=== PATIENT | male | born 1950 | race Caucasian/White ===

== ENCOUNTER 2021-01-29 10:29 | Emergency (ER) | payer MEDICARE, SELFPAY ==
[2021-01-29 10:38] VITALS: BP 151/86; PULSE 77; RESP 16; TEMP 36.4; O2SAT 98
--- NOTE | 2021-01-29 10:39 | ED.URI ---
HPI - URI/Sore Throat General Chief Complaint: Upper Respiratory Infection Stated Complaint: COUHG Time Seen by Provider: 01/29/21 10:39 Source: patient, RN notes reviewed and old records reviewed Mode of arrival: ambulatory Limitations: no limitations History of Present Illness HPI Narrative: 70-year-old male who presents to [facility] with complaints of persistent cough for the past 11 days, on Medrol dose pack at present time from his PCP. Patient states that at the start of his symptoms he had headache generalized with with sinus drainage. He reports that he has been tired and felt weak with some episodes of diarrhea. Patient reports also that he has some changes in his taste and smell. Patient denies any known exposure to COVID, has not had immunizations. MD elicited complaint: cough and other (diarrhea,) Onset (ago): day(s) () Consistency: constant Related Data Home Medications Medication Instructions Recorded Confirmed finasteride mg 01/29/21 lisinopril 01/29/21 prednisone 01/29/21 Allergies Allergy/AdvReac Type Severity Reaction Status Date / Time No Known Allergies Allergy Mild Unverified 11/22/12 07:06 Review of Systems Review of Systems: CONSTITUTIONAL: Denies fever, chills, or sweats. EYES: Denies visual changes, redness, or discharge. ENT: reports some rhinorrhea, congestion, no sore throat, or otalgia. CARDIOVASCULAR: Denies chest pain, palpitations, or edema. RESPIRATORY: Positive cough denies dyspnea. GASTROINTESTINAL: Denies abdominal pain, nausea, vomiting, episodes of diarrhea GENITOURINARY: Denies dysuria or hematuria. SKIN: Denies rash or itching. MUSCULOSKELETAL: Denies back pain, joint pain, or myalgia. NEUROLOGIC: Intermittent headache,no numbness, reports weakness and fatigue PSYCHIATRIC: Denies anxiety or depression. All systems reviewed & are unremarkable except as noted in HPI and below PMFSH Past Medical History Medical History (Updated 01/30/21 @ 00:01 by Meghna Aquino) Hypertension Surgical History Surgical History (Updated 01/29/21 @ 11:09 by Miguelina Huff NP) No history of previous surgery Family History Family History (Updated 01/29/21 @ 10:44 by Miguelina Huff NP) Father Hypertension Cerebrovascular accident Heart disease Mother Hypertension Cerebrovascular accident History of stomach cancer Social History Social History (Updated 01/29/21 @ 11:09 by Miguelina Huff NP) Smoking status: Never smoker Alcohol intake: current Alcohol use details: Social Substance use: never Living arrangements: with family Gender identity (if verbalized by the patient): Male Comments At time of signature, agree with nursing past medical, surgical, social and family history. There is no relevant family history pertinent to the presenting complaint Exam Narrative: GENERAL: Well-appearing, well-nourished, and in no acute distress. HEAD: Normocephalic, atraumatic. EYES: PERRLA and EOMI. ENT: Nares red no rhinorrhea or epistaxis. Mucous membranes moist. TM's normal with good light reflex, throat mild redness no exudates or lesion no tonsil enlargement NECK: Supple.no lymphadenopathy CHEST: Clear to auscultation. No respiratory distress.SAO2 98% on room air, persistent cough HEART: Regular rate and rhythm. No murmur heard. Normal peripheral pulses. ABDOMEN: Soft, nontender, nondistended, normal active bowel sounds. EXTREMITIES: Normal range of motion. No edema. SKIN: Warm, dry, no rash. NEURO: No focal deficits. Alert and oriented x3. Course Vital Signs Vital signs: Vital Signs Temperature 36.4 C 01/29/21 10:38 Pulse Rate 77 01/29/21 10:38 Respiratory Rate 16 01/29/21 10:38 Blood Pressure 151/86 H 01/29/21 10:38 Pulse Oximetry 98 01/29/21 10:38 Temperature 36.4 C 01/29/21 10:38 Pulse Rate 77 01/29/21 10:38 Respiratory Rate 16 01/29/21 10:38 Blood Pressure 151/86 H 01/29/21 10:38 Pulse Oximetry 98
== END 2021-01-29 11:45 | disposition home or self-care (01) ==
PROVIDERS: Emergency Provider Registered Nurse; PCP Family Medicine Adolescent Medicine
DX: U07.1 COVID-19 (principal); I10 Essential (primary) hypertension
CPT/HCPCS: 87081; 87426; 87804; 87880; 99203; C9803; G0463

== ENCOUNTER → 2021-07-10 00:17 | Outpatient (CLI) | payer MEDICARE, SELFPAY ==
[2021-07-11 15:56] LABS: SARS-CoV-2 RNA PCR Negative
== END ==
PROVIDERS: PCP Family Medicine Adolescent Medicine; Visit Provider Specialist
DX: Z01.812 Encounter for preprocedural laboratory examination (principal); Z20.822 Contact with and (suspected) exposure to COVID-19
CPT/HCPCS: C9803; U0003; U0005

== ENCOUNTER 2021-07-14 01:09 | Day surgery (SDC) | payer MEDICARE, SELFPAY ==
[2021-07-13 13:18] VITALS: BMI 32.5
[2021-07-14] VITALS (28 sets, daily range): BP systolic 138–172; BP diastolic 72–98; PULSE 64–89; RESP 12–20; TEMP 36.3–36.8; O2SAT 96–100
[2021-07-14 08:56] LABS: Basophils Percent Auto 0.3 % (0.2-1.2); Eosinophils Absolute Auto 0.1 K/mm3 (0-0.3); Eosinophils Percent Auto 0.7 % (0-4.4); Hematocrit 49.6 % (42.0-52.0); Hemoglobin 17.1 g/dL (14.0-18.0); Immature Granulocyte Absolute 0.11 K/mm3 (0.00-0.031); Immature Granulocyte Percent A 0.8 % (0-0.5); Lymphocytes Absolute Auto 1.19 K/mm3 (0.9-3.2); Lymphocytes Percent Auto 8.8 % (18.3-44.2); Mean Corpuscular HGB Conc 34.5 g/dl (32-36); Mean Corpuscular Hemoglobin 31.7 pg (26-34); Mean Platelet Volume 9.3 fl (7.4-10.4); Monocytes Absolute Auto 0.8 K/mm3 (0.1-0.6); Neutrophils Absolute Auto 11.2 K/mm3 (1.3-6.7); Neutrophils Percent Auto 83.4 % (45.5-73.1); Platelet Count Result 293 k/mm3 (150-375); Red Blood Count 5.39 M/mm3 (4.6-6.20); Red Cell Distribution Width 12.5 % (11.5-14.5); White Blood Count 13.5 K/mm3 (4.5-10.0)
[2021-07-14 09:12] LABS: Anion Gap 9 mmol/L (8-16); Blood Urea Nitrogen 15 mg/dL (9-20); Calcium 9.4 mg/dL (8.4-10.2); Carbon Dioxide 30 mmol/L (22-30); Chloride 102 mmol/L (98-107); Estimated CRCL calculation 72 ml/min; Estimated Glomerular Filt Rate > 60; Glucose 146 mg/dL (65-110); Potassium 4.2 mmol/L (3.4-5.0); Sodium 141 mmol/L (137-145)
--- NOTE | 2021-07-14 10:08 | WPDMODSED ---
Moderate Sedation Note-Pt Data Patient Data Diagnosis: Exertional chest pain abnormal stress test Present Complaint: exertional chest discomfort Procedure to be performed/Plan: left heart catheterization Allergies Allergy/AdvReac Type Severity Reaction Status Date / Time No Known Allergies Allergy Mild Unverified 07/14/21 09:05 Home Medications Medication Instructions Recorded Confirmed Type finasteride 5 mg PO DAILY 01/29/21 07/13/21 History Adults Multivitamin 2 tablet PO DAILY 07/13/21 07/13/21 History Lopressor 25 mg PO BID 07/13/21 07/13/21 History Zyrtec 10 mg PO DAILY 07/13/21 07/13/21 History aspirin 325 mg PO DAILY 07/13/21 07/13/21 History atorvastatin [Lipitor] 20 mg PO DAILY 07/13/21 07/13/21 History lisinopril 10 mg tablet 10 mg PO DAILY #90 tablet 07/13/21 Rx Current Medications: Active Medications Sodium Chloride (Normal Saline Iv) 500 mls @ 100 mls/hr IV CONT .Q5H MENDY Sedation/Anesthesia: No previous sedation/anesthesia problems (including family history). [facility] Past Medical History Medical History (Updated 01/30/21 @ 00:01 by Meghna Aquino) Hypertension Surgical History Surgical History (Updated 01/29/21 @ 11:09 by Miguelina Huff NP) No history of previous surgery Family History Family History (Updated 01/29/21 @ 10:44 by Miguelina Huff NP) Father Hypertension Cerebrovascular accident Heart disease Mother Hypertension Cerebrovascular accident History of stomach cancer Social History Social History (Updated 01/29/21 @ 11:09 by Miguelina Huff NP) Smoking status: Never smoker Alcohol intake: current Alcohol use details: Social Substance use: never Gender identity (if verbalized by the patient): Male Mod Sed Physical Exam Physical Exam Pre Procedural Exam: Normal: Neck, Throat, Airway, Lungs, Heart Size, Heart Rate, Heart Rhythm, Neuro Exam, Abdomen and Extremities and Variation: Appearance ( overweight gentleman no distress) Hours since solid foods: 12 Hours since liquid intake: 12 Mallampati Classification: class II Internal Medicine - PN: Obj Da Vital Signs Vital Signs: Vital Signs - 24 hr 07/14/21 09:08 Temperature 36.4 C L Pulse Rate 81 Respiratory Rate 16 Blood Pressure 157/91 H Pulse Oximetry 97 Meds/Results Medications: Active Medications Generic Name Dose Route Start Last Admin Trade Name Scott PRN Reason Stop Dose Admin Sodium Chloride 500 mls @ 100 mls/hr 07/14/21 08:30 Normal Saline Iv IV CONT .Q5H MENDY Labs CBC & Chem 7: 07/14/21 08:45 07/14/21 08:45 Labs: Laboratory Results - last 24 hr 07/14/21 07/14/21 08:45 08:45 WBC 13.5 H RBC 5.39 Hgb 17.1 Hct 49.6 MCV 92.0 MCH 31.7 MCHC 34.5 RDW 12.5 Plt Count 293 MPV 9.3 Immature Gran % (Auto) 0.8 H Neut % (Auto) 83.4 H Lymph % (Auto) 8.8 L [place] % (Auto) 6.0 Eos % (Auto) 0.7 Baso % (Auto) 0.3 Lymph # (Auto) 1.19 [place] # (Auto) 0.8 H Eos # (Auto) 0.1 Baso # (Auto) 0.0 Abs Immat Gran (auto) 0.11 H Absolute Neuts (auto) 11.2 H Absolute Nucleated RBC 0.0 Nucleated RBC % 0.0 Sodium 141 Potassium 4.2 Chloride 102 Carbon Dioxide 30 Anion Gap 9 BUN 15 Creatinine 1.00 Estim Creat Clear Calc 72 Estimated GFR > 60 Glucose 146 H Calcium 9.4 ASA Classification/Sedation ASA Classification/Sedation ASA Class: II Emergent: No Risks: Risks, benefits and alternatives explained and patient/family accepted plan for sedation. Patient re-evaluated immediately prior to sedation.
--- NOTE | 2021-07-14 11:10 | ECG_ITS ---
Measurements Intervals [place] Rate: 67 P: 49 CT: 165 QRS: -7 QRSD: 83 T: -33 QT: 362 QTc: 384 Interpretive Statements SINUS RHYTHM ATRIAL PREMATURE COMPLEX CONSIDER INFERIOR INFARCT, AGE INDETERMINATE BORDERLINE T WAVE ABNORMALITY- ANTEROLAT/HIGH LAT LEADS BASELINE ARTIFACT- I, II, V4-V6 ABNORMAL ECG Electronically Signed On 07-14-2021 13:07:07 GATE TENDER by Priyank Gomes D.O.
--- NOTE | 2021-07-14 11:15 | WPDCARDPROC ---
Cardiac Cath Procedure Note Date of procedure:: 07/14/21 Performing physician:: Palmer Zhang MD Indication:: exertional chest pain abnormal stress test Brief clinical history:: this is a 70-year-old man with hypertension and dyslipidemia who has been experiencing exertional chest pain for several months. Exercise stress test as an outpatient was significantly abnormal prompting the recommendation for an angiogram today. Procedure Procedure performed:: Coronary angiogram left ventriculogram PCI(INDIRA) to proximal LAD Access site:: right femoral artery Estimated blood loss:: 20 cc Procedure note:: patient was brought to the garden labourer in the postabsorptive state the right femoral triangle was prepared draped in the usual fashion. Anesthesia was given with 1% lidocaine infiltrated locally. Using the modified Seldinger technique a 5 [place] vascular sheath was placed in the femoral artery. After this left heart catheterization was carried out. I used a 5 [place] angled pigtail catheter to perform a left ventriculogram in the ROSS projection. After this the pigtail catheter was removed and then a 5 [place] FL4 catheter was used to engage and inject the left coronary artery and then a 5 [place] JR4 catheter was used to engage and inject the right coronary artery. The cineangiograms were then reviewed and PCI of the LAD was recommended and carried out as detailed below. Prior to PCI the 5 [place] sheath was changed out over the guidewire for a 6 [place] sheath. He received 180 mg of oral Brilinta and was anticoagulated with Angiomax bolus and infusion for procedural anticoagulation. Following the procedure the sheath was sutured into position the guiding catheter was removed the patient had no apparent procedural complications no evidence of a groin hematoma upon leaving the garden labourer. Findings:: Hemodynamics: Central aortic pressure was 158 over 78 left ventricle 158/0 end-diastolic 14. No gradient on pullback across the aortic valve. Left ventricle: The LV is normal in size all segments contract appropriately the global ejection fraction is 50-55% there were no regional wall motion abnormalities. The left main coronary artery is large caliber widely patent the left anterior descending is a moderate caliber artery extending down to the apex. There is a high-grade 95% discrete stenosis in the proximal LAD just before the origin of the major diagonal branch. Distally the LAD is fairly small in caliber but free of significant disease. Circumflex is a medium caliber artery giving rise to the marginal branches. The circumflex system is smooth and angiographically normal in appearance right coronary artery is large caliber and dominant to the posterior circulation the right coronary artery is smooth and angiographically normal in appearance. Intervention: The left coronary artery was engaged using a 6 [place] CLS 3.0 guiding catheter. The LAD was wired using the 0.014 BMW coronary guidewire. The lesion was pre-dilated using a 3.0 x 20 mm emerge balloon. The target lesion was then stented using a 3.5 x 22 mm Orsiro drug-eluting stent with an excellent anatomic result no residual stenosis disruption dissection or distal embolization. Conclusion:: 1. right coronary dominant circulation with single-vessel coronary artery disease high-grade 95 % stenosis of the proximal left anterior descending. 2. Preserved left ventricular systolic function 3. successful revascularization treating the LAD lesion using the Orsiro sirolimus eluting stent with a nice anatomical result as detailed above. Palmer Zhang MD [facility]
--- NOTE | 2021-07-14 14:15 | SUR.PHASEII ---
sheath pulled by this RN. no hematoma noted. hemostasis obtained. statseal applied to access site. dressing applied. d/c/i
--- NOTE | 2021-07-14 16:42 | SUR.PHASEII ---
reported given to imu by jia jurado. patient transferred with belongings. patient is going to update his on his new room to 210. patient a/ox2. site wnl.. no hematoma noted, dressing d/c i
--- NOTE | 2021-07-14 16:50 | PC.NURSE ---
This patient, Jeff Ortiz, was received from [facility] on 07/14/21 at 1650. Report received from BI Kebede. Patient/family oriented to unit policies and routines
[2021-07-14] MEDS: TICAGRELOR 90 MG TABLET PO (22:05)
[2021-07-14] MEDS: METOPROLOL TARTRATE 25 MG TABLET PO (22:05)
[2021-07-15] VITALS (9 sets, daily range): BP systolic 133–150; BP diastolic 67–78; PULSE 56–70; RESP 16–20; TEMP 36.2–36.5; O2SAT 95–98
--- NOTE | 2021-07-15 05:11 | ECG_ITS ---
Measurements Intervals [place] Rate: 66 P: 39 NM: 165 QRS: -16 QRSD: 85 T: 34 QT: 360 QTc: 378 Interpretive Statements SINUS RHYTHM FREQUENT ATRIAL PREMATURE COMPLEXES INFERIOR INFARCT, AGE INDETERMINATE NONSPECIFIC T-WAVE ABNORMALITY- ANTEROLAT/HIGH LAT LEADS ABNORMAL ECG Electronically Signed On 07-15-2021 10:02:28 HAT MEASURER by Priyank Gomes D.O.
[2021-07-15] MEDS: ATORVASTATIN 40 MG TABLET PO (08:43)
[2021-07-15] MEDS: TICAGRELOR 90 MG TABLET PO (08:44)
[2021-07-15] MEDS: ASPIRIN 81 MG CHEWABLE TABLET PO (08:44)
[2021-07-15] MEDS: METOPROLOL TARTRATE 25 MG TABLET PO (08:44)
[2021-07-15] MEDS: lisinopriL 10 MG TABLET PO (08:44)
--- NOTE | 2021-07-15 09:10 | PM.PNCARD ---
Progress Note: A&P Assessment and Plan (1) Atherosclerotic heart disease of [place] coronary artery without angina pectoris: Code(s): I25.10 - Atherosclerotic heart disease of [place] coronary artery without angina pectoris Status: Acute Assessment and Plan: Recent abnormal stress test prompting coronary angiogram which was performed yesterday. Subjective Date/time seen: 07/15/21 09:10 Review of Systems Review of Systems: All systems reviewed & are unremarkable except as noted in HPI and below Objective Data Vital Signs Vital Signs: Vital Signs - 24 hr 07/14/21 11:30 07/14/21 11:45 07/14/21 12:00 Temperature 36.8 C Pulse Rate 66 65 65 Pulse Rate [Bilateral Pedal (Dorsalis Pedis)] Respiratory Rate 16 12 12 Blood Pressure 152/79 H 145/85 H 152/88 H Pulse Oximetry 98 97 96 07/14/21 12:15 07/14/21 12:30 07/14/21 12:45 Temperature Pulse Rate 64 72 65 Pulse Rate [Bilateral Pedal (Dorsalis Pedis)] Respiratory Rate 12 12 12 Blood Pressure 150/84 H 147/84 H 149/91 H Pulse Oximetry 96 96 96 07/14/21 13:00 07/14/21 13:15 07/14/21 13:20 Temperature Pulse Rate 77 66 Pulse Rate [Bilateral Pedal (Dorsalis Pedis)] Respiratory Rate 12 12 12 Blood Pressure 145/87 H 152/85 H 158/84 H Pulse Oximetry 100 97 98 07/14/21 13:25 07/14/21 13:30 07/14/21 13:35 Temperature Pulse Rate Pulse Rate [Bilateral Pedal (Dorsalis Pedis)] 69 69 68 Respiratory Rate 12 12 12 Blood Pressure 143/95 H 165/88 H 162/94 H Pulse Oximetry 98 97 07/14/21 13:40 07/14/21 13:45 07/14/21 13:50 Temperature Pulse Rate Pulse Rate [Bilateral Pedal (Dorsalis Pedis)] 67 73 75 Respiratory Rate 14 12 Blood Pressure 172/98 H 148/84 H Pulse Oximetry 97 97 07/14/21 14:05 07/14/21 14:20 07/14/21 14:35 Temperature Pulse Rate 71 Pulse Rate [Bilateral Pedal (Dorsalis Pedis)] 73 71 76 Respiratory Rate 12 20 12 Blood Pressure 152/72 H 138/85 154/79 H Pulse Oximetry 97 96 96 07/14/21 14:50 07/14/21 15:24 07/14/21 15:50 Temperature Pulse Rate Pulse Rate [Bilateral Pedal (Dorsalis Pedis)] 74 83 83 Respiratory Rate 12 12 12 Blood Pressure 162/77 H 144/83 H 146/83 H Pulse Oximetry 96 100 100 07/14/21 16:55 07/14/21 18:00 07/14/21 19:02 Temperature 36.3 C L 36.6 C Pulse Rate 75 74 78 Pulse Rate [Bilateral Pedal (Dorsalis Pedis)] Respiratory Rate 16 20 Blood Pressure 157/82 H 147/80 H Pulse Oximetry 98 96 07/14/21 20:00 07/14/21 22:00 07/14/21 22:05 Temperature Pulse Rate 81 66 89 Pulse Rate [Bilateral Pedal (Dorsalis Pedis)] Respiratory Rate 20 Blood Pressure Pulse Oximetry 96 07/15/21 00:00 07/15/21 02:00 07/15/21 04:00 Temperature 36.2 C L Pulse Rate 66 61 60 Pulse Rate [Bilateral Pedal (Dorsalis Pedis)] Respiratory Rate 20 Blood Pressure 150/76 H Pulse Oximetry 95 07/15/21 04:55 07/15/21 06:00 07/15/21 08:21 Temperature 36.4 C 36.5 C Pulse Rate 56 L 62 64 Pulse Rate [Bilateral Pedal (Dorsalis Pedis)] Respiratory Rate 20 16 Blood Pressure 133/67 135/78 Pulse Oximetry 98 98 07/15/21 08:44 Temperature Pulse Rate 70 Pulse Rate [Bilateral Pedal (Dorsalis Pedis)] Respiratory Rate Blood Pressure Pulse Oximetry Intake/Output Intake/Output: Intake & Output 07/12/21 07/13/21 07/14/21 07/15/21 23:59 23:59 23:59 23:59 Intake Total 240 Balance 240 Meds/Results Medications: Active Medications Generic Name Dose Route Start Last Admin Trade Name Freq PRN Reason Stop Dose Admin Aspirin 81 mg 07/15/21 08:00 07/15/21 08:44 Aspirin 81 Mg Chewable Tablet PO 81 mg DAILY@0800 MENDY Administration Atorvastatin Calcium 40 mg 07/15/21 09:00 07/15/21 08:43 Atorvastatin 40 Mg Tablet PO 40 mg DAILY MENDY Administration Sodium Chloride 500 mls @ 100 mls/hr 07/14/21 08:30 07/15/21 07:33 Normal Saline Iv IV CONT Not Given .Q5H COUNTS INCLUDE 234 BEDS AT THE [facility] Lisinopril 10 mg 07/15/21 09:00
--- NOTE | 2021-07-15 09:49 | PM.DS ---
DS: Admitting Diagnosis Discharge Date 07/15/21 Admitting Diagnosis Coronary artery disease DS: Discharge Diagnosis Discharge Diagnosis (1) Atherosclerotic heart disease of [place] coronary artery without angina pectoris: Code(s): I25.10 - Atherosclerotic heart disease of [place] coronary artery without angina pectoris Status: Acute Assessment and Plan: Recent abnormal stress test prompting coronary angiogram which was performed yesterday. His angiogram revealed 95% stenosis of the distal LAD. This lesion was stented using a 3.5 x 22 mm Orsiro drug-eluting stent. There was a good and, was not following placement of the stent. He was placed on medical therapy with aspirin, atorvastatin, Brilinta, lisinopril, metoprolol. Normal left ventricular systolic function with an ejection fraction of 50-55%. No regional wall motion abnormalities. He is feeling well following his procedure yesterday. He denies having any chest pain, shortness of breath. He does not have any complaints whatsoever today. Appropriate for discharge home today. DS: Summary Hospital Course Hospital Course: Patient under the hospital on 07/14/2021 for elective coronary angiogram. He was found to have 95% stenosis of the distal LAD. This was treated with a course Orsiro drug-eluting stent. He has been placed on appropriate medical therapy for coronary artery disease including aspirin, statin, Brilinta. Patient was stable overnight, did not have any postprocedural complications. Plan for discharge from hospital today. Time Spent with Patient Time attestation: Total time spent providing and/or coordinating discharge services: 52 minutes Exam Const: General: healthy appearing, comfortable, alert and awake Eyes: General: appearance normal, both eyes and all related structures Pupils: Equal, round and reactive pupils present Neck: Neck: supple and no JVD Carotids: no bruits Resp: Auscultation: clear to auscultation bilaterally Cardio: Rate: regular rate Rhythm: regular rhythm Heart sounds: no murmurs GI: GI Palp: Yes Soft to palpation Auscultation: normal bowel sounds Skin: General skin exam: normal color Other: Right groin arterial access site free from bleeding, hematoma, pain, or bruit. Neuro: General: patient oriented x3 Extrem: General: normal to inspection Other: Distal pulses are intact. Psych: Mental Status: mental status grossly normal Affect: normal affect Discharge Plan Discharge Attending physician on discharge: Aldo Peterson Discharging Clinician: Gwen Acevedo Patient Disposition: Home, Self-Care Activity: other - see discharge instructions Diet: heart healthy Discharge Instructions: [facility] [address] [place], [place] [id number] DISCHARGE INSTRUCTIONS - POST PCI Activity 1. No driving until 07/17/20. 2. No lifting, pushing or pulling more than 10 pounds for 1 week. 3. No strenuous exercise or activity (including sexual activity) until you are released to do so. 4. May shower but no tub baths or swimming pool for 1 week. Avoid commercial hot tubs. They are too hot. Wound care 1. May remove gauze dressing tomorrow and place Band aid over site. 2. Remove Band aid on 07/16/21 and leave site open to air. 3. Observe for redness, swelling, drainage or bleeding. 4. Wash gently and pat dry when showering. Medications DO NOT STOP YOUR MEDICATIONS ONLY YOUR CARDIOLOGIS
== END 2021-07-15 12:49 | disposition home or self-care (01) ==
LOC: ANHCATHLAB 18:41 → ANHIMU 07-15 09:57
PROVIDERS: PCP Family Medicine Adolescent Medicine; Visit Provider Specialist
PROC: 4A023N7 Measurement of Cardiac Sampling and Pressure, Left Heart, Percutaneous Approach (ICD-10-PCS; CPT 93452; principal; 2021-07-14 10:00)
DX: I25.10 Atherosclerotic heart disease of native coronary artery without angina pectoris (principal); R94.39 Abnormal result of other cardiovascular function study; R07.9 Chest pain, unspecified; I10 Essential (primary) hypertension; Z79.82 Long term (current) use of aspirin
CPT/HCPCS: 36415; 80048; 85025; 93005; 93458; A9270; C1725; C1769; C1874; C1887; C1894; C9600; J0583; J1644; J2250; J3010; J7030; J7040

== ENCOUNTER 2021-11-10 08:30 | Outpatient (RCR) | payer MEDICARE, SELFPAY ==
[2021-08-20 11:24] VITALS: PULSE 70
== END 2021-11-10 15:04 | disposition home or self-care (01) ==
LOC: ANHCPREHAB 08:30
PROVIDERS: PCP Family Medicine Adolescent Medicine; Visit Provider Internal Medicine Cardiovascular Disease
DX: Z95.5 Presence of coronary angioplasty implant and graft (principal)
CPT/HCPCS: 93798

== ENCOUNTER 2022-01-27 10:47 | Emergency (ER) | payer MEDICARE, SELFPAY ==
--- NOTE | 2022-01-27 10:50 | ED.SKABFB ---
HPI - Skin/Abscess/Foreign Bdy General Chief complaint: Skin/Abscess/Foreign Body Stated complaint: RASH Time Seen by Provider: 01/27/22 10:52 Source: patient, RN notes reviewed and old records reviewed Mode of arrival: ambulatory Limitations: no limitations History of Present Illness HPI narrative: 71-year-old male presents to the [facility] with complaints of a rash to the right side of his back and into the right axilla. Noticed some discomfort approximately 6 days ago. States he got out of the shower yesterday and noticed a red rash, blistery, painful. Denies any fevers, chest pain, abdominal pain. Related Data Home Medications Medication Instructions Recorded Confirmed finasteride 5 mg tablet 5 mg PO DAILY 01/29/21 01/27/22 Adults Multivitamin 1 tablet PO DAILY 07/13/21 01/27/22 Allergies Allergy/AdvReac Type Severity Reaction Status Date / Time No Known Allergies Allergy Mild Verified 01/27/22 10:55 Review of Systems Review of Systems: All systems reviewed & are unremarkable except as noted in HPI and below Constitutional: Constitutional: Reports no additional constitutional complaints, Denies chills and Denies fever(s) Eyes: Eyes: Reports no additional eye complaints ENT: Reports system reviewed and no additional complaints, except as documented Cardiovascular: Cardiovascular: Reports no additional cardiovascular complaints Respiratory: Respiratory: Reports no additional respiratory complaints Gastrointestinal: Gastrointestinal: Reports no additional gastrointestinal complaints Musculoskeletal: Musculoskeletal: Reports no additional musculoskeletal complaints Integumentary/Breasts: Skin/Breast: Reports as per HPI and Reports rash (mid right back and axilla) Neurologic: Reports system reviewed and no additional complaints, except as documented Psychiatric: Psychiatric: Reports no additional psychiatric complaints Allergic/Immunologic: Allergic/Immunologic: Reports no additional allergic/immunologic complaints PENDING SALE TO [facility] Past Medical History Medical History COVID-19 Hypertension Normal colonoscopy 11/05 Repeat 11/15 Surgical History Surgical History History of cardiac catheterization 07/17 Presence of coronary artery bypass graft stent 07/17, Right CA Family History Family History Father Hypertension Heart disease Acute myocardial infarction Cerebrovascular accident Mother Hypertension Grandparent Cerebrovascular accident Other Colon polyp Social History Social History Smoking status: Never smoker Second hand tobacco smoke exposure: No Alcohol intake: current Alcohol use details: Social Substance use: never Substance use type: does not use Gender identity (if verbalized by the patient): Male Sexual Orientation (if Verbalized by the Patient): Straight or Heterosexual Spiritual care concerns: No Agree to blood products: Yes Comments At the time of my signature, I reviewed and agree with the nursing past medical, surgical, social, and family history. There is no relevant family history pertinent to the patient complaint. Exam Const: General: healthy appearing, no acute distress and alert Nutritional Appearance: well nourished Orientation/consciousness: patient oriented x3 Limitations: no limitations HENMT: Head: normal to inspection Ears: external ears normal General nose exam: Normal external nose present Eyes: General: appearance normal, both eyes and all related structures Pupils: Equal, round and reactive pupils present Neck: Neck: normal visual inspection, no lymphadenopathy and no meningeal signs Chest: Chest palpation & inspection: normal inspection of the chest Resp: Effort & Inspection: normal respiratory effort and n
[2022-01-27 10:56] VITALS: BP 137/80; PULSE 65; RESP 16; TEMP 36.9; O2SAT 100
== END 2022-01-27 11:20 | disposition home or self-care (01) ==
PROVIDERS: Emergency Provider Nurse Practitioner; PCP Family Medicine Adolescent Medicine
DX: B02.9 Zoster without complications (principal); I10 Essential (primary) hypertension; Z95.5 Presence of coronary angioplasty implant and graft; Z86.16 Personal history of COVID-19
CPT/HCPCS: 99213; G0463

== ENCOUNTER → 2022-04-12 14:28 | Outpatient (CLI) | payer MEDICARE, SELFPAY ==
--- NOTE | ~2022-04-12 | CT_ITS ---
EXAMINATION: CT abdomen pelvis wo con DATE: 04/12/2022 14:46 INDICATION: Left lower quadrant abdominal pain. TECHNIQUE: Computed tomography (CT) of the abdomen and pelvis was performed without intravenous contr ast. Automated exposure control and iterative reconstruction technique were employed. The dose-length product was 926.39 mGy-cm. COMPARISON: None. FINDINGS: The visualized portions of the lung bases demonstrate mild atelectasis. A calcified right l joe nodule is consistent with old granulomatous disease. No pleural effusion. The heart size is rossi l. No pericardial effusion. The liver and gallbladder are normal. Calcifications in the spleen are co nsistent with old granulomatous disease. The pancreas and adrenal glands are normal. There are cysts in the kidneys measuring up to 4.7 cm on the right. There is no urolithiasis. There are bilateral ing uinal hernias containing fat. There is diverticulosis of the colon without evidence of diverticulitis . The appendix is normal. There is an umbilical hernia containing fat. There are no pathologically en larged lymph nodes. There is no free intraperitoneal fluid. There is severe lumbar spondylosis. IMPRESSION: 1. Bilateral inguinal hernias containing fat. 2. Umbilical hernia containing fat. Reviewed, dictated and finalized at location B.
== END ==
PROVIDERS: PCP Family Medicine Adolescent Medicine; Visit Provider Family Medicine Adolescent Medicine
DX: R10.32 Left lower quadrant pain (principal); K40.20 Bilateral inguinal hernia, without obstruction or gangrene, not specified as recurrent; K42.9 Umbilical hernia without obstruction or gangrene
CPT/HCPCS: 74176

== ENCOUNTER 2024-04-24 08:23 | Emergency (ER) | payer MEDICARE, SELFPAY ==
[2024-04-24 08:31] VITALS: BP 145/82; PULSE 102; RESP 16; TEMP 36.3; O2SAT 99
[2024-04-24 09:01] LABS: EDUAAPPEAR Clots; EDUABILI Negative (Negative); EDUABLOOD 3+ (Negative); EDUACOLOR1 Red; EDUAGLUCOSE Negative (Negative); EDUAKETONE Negative (Negative); EDUALEUKO 3+ (Negative); EDUANITRATE Negative (Negative); EDUAPH 8.5; EDUAPROTEIN 3+ (Negative); EDUAUROBILI 0.2
--- NOTE | 2024-04-24 09:03 | ED_ITS ---
HPI - Male Genitourinary General Chief complaint: Urogenital-Male Stated complaint: Urine Irritation Time Seen by Provider: 04/24/24 09:03 Source: patient Mode of arrival: ambulatory Limitations: no limitations History of Present Illness HPI Narrative: 73 yo M presents with c/o urinary symptoms that started over the last 8 hours. Began having urinary frequency, urgency yesterday evening. Woke up several times during the night to urinate Hx of BPH. usually only wakes up one or two times. Started urinating blood this AM. No clots. Reports some decreased output. Last saw his urologist 3 years ago to rule out prostates cancer. Denies fever, N/V. All systems reviewed and negative except as noted above. Related Data Home Medications Medication Instructions Recorded Confirmed finasteride 5 mg tablet 5 mg PO DAILY 01/29/21 04/24/24 Adults Multivitamin 1 tablet PO DAILY 07/13/21 04/24/24 nitroglycerin 0.4 mg sublingual 0.4 mg sublingual ONCE PRN Chest 01/04/24 04/24/24 tablet Pain ticagrelor 60 mg tablet (Brilinta) 60 mg PO ONCE 01/04/24 04/24/24 Allergies Allergy/AdvReac Type Severity Reaction Status Date / Time No Known Allergies Allergy Mild Verified 04/24/24 08:54 Review of Systems Review of Systems: CONSTITUTIONAL: Denies fever, chills, or sweats. EYES: Denies visual changes, redness, or discharge. ENT: Denies rhinorrhea, congestion, sore throat, or otalgia. CARDIOVASCULAR: Denies chest pain, palpitations, or edema. RESPIRATORY: Denies cough or dyspnea. GASTROINTESTINAL: Denies abdominal pain, nausea, vomiting, or diarrhea. GENITOURINARY: Reports urinary frequency, urgency, hematuria, decreased output. SKIN: Denies rash or itching. MUSCULOSKELETAL: Denies back pain, joint pain, or myalgia. NEUROLOGIC: Denies headache, numbness, or weakness. PSYCHIATRIC: Denies anxiety or depression. All other systems reviewed are negative, except as documented in HPI. 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, Right CA Family History Family History Father Hypertension Heart disease Acute myocardial infarction Cerebrovascular accident Mother Hypertension Grandparent Cerebrovascular accident Other Colon polyp Social History Social History Smoking status: Never smoker Second hand tobacco smoke exposure: No Alcohol intake: current Alcohol use details: Social Substance use: never Substance use type: does not use Living arrangements: with family Occupation/Education: retired Gender identity (if verbalized by the patient): Male Sexual Orientation (if Verbalized by the Patient): Straight or Heterosexual Spiritual care concerns: No Agree to blood products: Yes Comments At time of signature, agree with nursing past medical, surgical, social and family history. There is no relevant family history pertinent to the presenting complaint. Exam Narrative: GENERAL: This is a well-nourished, well-developed patient, in no apparent distress. HEAD: normocephalic, atraumatic. EYES: PERRL. Sclera clear/white. Vision is grossly intact. EARS: External ears normal NOSE: External nose normal NECK: Neck supple, non-tender without lymphadenopathy, masses or thyromegaly. CARDIOVASCULAR: Regular rate and rhythm without murmurs, gallops, or rubs. RESPIRATORY: Clear to auscultation. Breath sounds equal bilaterally. No wheezes, rales, or rhonchi. SKIN: warm, Dry, intact with no suspicious lesions or rash, good texture and turgor. NEURO: awake, alert, and oriented to person, place and time. There were no obvious focal neurologic abnormalities. EXTREMITIES: No joint tenderness, effusion, or edema noted. Course Course Level of Care: Express Care Visit Vital Signs Vital signs: Vital Signs Temperature 36.3 C L 04/24/24 08:31 Pulse Rate 102 H 04/24/24 08:31 Respiratory Rate 16 04/24/24 08:31 Blood Pressure 145/82 H 04/24/24 08:31 Pulse Oximetry 99 04/24/24 08:31 Temperature 36.3 C L 04/24/24 08:31 Pulse Rate 102 H 10/30/24 08:31 Respiratory Rate 16 04/24/24 08:31 Blood Pressure 145/82 H 04/24/24 08:31 Pulse Oximetry 99 04/24/24 08:31 Oxygen Delivery Room Air 04/24/24 08:40 Reviewed MDM - Male Genitourinary MDM Narrative Medical decision making narrative: Urine dip most likely inaccurate due to blood in urine. Urine culture ordered. Will treat patient with antibiotic for possible urinary tract infection. Recommend he call today and schedule follow-up appointment with his urologist. Recommend he go to the ER for any worsening of symptoms. Patient is nontoxic, well appearing at this time. Patient is aware of diagnosis, understands and agrees to treatment plan. Anticipatory guidance given. Patient agrees to follow-up as directed and is aware of reasons to seek care at the emergency department. Portions of this record may have been created with voice recognition software Lab Data Labs: Lab Results 04/24/24 Range/Units 08:58 POC Urine Color Red POC Urine Clarity Clots POC Urine pH 8.5 POC Ur Specif Stanley 1.010 POC Urine Protein 3+ (Negative) POC Ur Glucose (UA) Negative (Negative) POC Urine Ketones Negative (Negative) POC Urine Blood 3+ (Negative) POC Urine Nitrite Negative (Negative) POC Urine Bilirubin Negative (Negative) POC Urine Urobilinogen 0.2 POC U Leukocyte Esteras 3+ (Negative) Discharge Plan Discharge Clinical Impression: Urinary tract infection, Hematuria Patient Disposition: Home, Self-Care Condition: Stable Instructions: Antibiotic Form, Urinary Tract Infection in Men (ED) Additional Instructions: Take antibiotic as prescribed. Stop taking [id number] azo until further evaluation by Urology. Drink at least 64 oz of water a day. Call and schedule follow-up appointment with urologist. For any worsening of symptoms go to the ER. Prescriptions: New ciprofloxacin HCl 500 mg tablet 500 mg PO BID 10 Days Qty: 20 0RF No Action finasteride 5 mg tablet 5 mg PO DAILY nitroglycerin 0.4 mg tablet, sublingual 0.4 mg sublingual ONCE PRN (Reason: Chest Pain) Brilinta 60 mg tablet 60 mg PO ONCE Adults Multivitamin 1 tablet PO DAILY lisinopril 10 mg Tablet 10 mg PO DAILY Qty: 30 11RF aspirin [Children's Aspirin] 81 mg Tablet,Chewable 81 mg PO DAILY@0800 30 Days Qty: 30 11RF metoprolol tartrate 25 mg tablet 25 mg PO BID 90 Days Qty: 180 3RF atorvastatin 40 mg tablet See Rx Instructions .ROUTE .COMPLEX Qty: 90 3RF Dose Instruction: TAKE 1 TABLET BY MOUTH DAILY Rx Instructions: TAKE 1 TABLET BY MOUTH DAILY metformin 500 mg tablet extended release 24 hr 500 mg PO DAILY Qty: 90 3RF Follow-up/Referrals: Darell Sorensen MD [Physician] - 3 Days (schedule follow up appointment with Urologist) Tico Hoover MD [Primary Care Provider] - Time of Disposition: 09:13
== END 2024-04-24 09:17 | disposition home or self-care (01) ==
PROVIDERS: Emergency Provider Nurse Practitioner Family; PCP Family Medicine Adolescent Medicine
DX: N39.0 Urinary tract infection, site not specified (principal); B95.1 Streptococcus, group B, as the cause of diseases classified elsewhere; R31.9 Hematuria, unspecified; I10 Essential (primary) hypertension; Z86.16 Personal history of COVID-19; Z95.1 Presence of aortocoronary bypass graft
CPT/HCPCS: 81003; 87086; 99213; G0463

== ENCOUNTER 2024-04-24 13:40 | Outpatient (CLI) | payer MEDICARE, SELFPAY ==
--- NOTE | ~2024-04-24 | CT_ITS ---
CT abdomen pelvis wo/w con Ordering provider: Misael Montgomery MD History: 73 years Male with . GROSS HEMATURIA . Comparison: April 12, 2022 Technique: CT abdomen and pelvis with IV and without oral contrast. Automated exposure control and it erative reconstruction technique were employed. The dose-length product was 2342.34 mGy-cm. 130 Omnip aque 350 was given IV. Findings: VISUALIZED LOWER CHEST: Dependent atelectatic changes. UPPER ABDOMINAL ORGANS: Liver: Normal. Gallbladder: Contracted. Spleen: Normal. Benign calcifications. Stomach/duodenum: Normal. Pancreas: Normal. Adrenals: Normal. Kidneys: Right renal cyst which measures 5.5 x 2.1 cm anteriorly in the upper pole area small left re nal cyst is seen in the upper pole. No definite stones or filling defect seen in both kidneys.. PELVIC ORGANS: The bladder shows thickened wall with minimal surrounding fat stranding cystoscopy to evaluate further evaluation is advised. Suggestive of cystitis. Prostatic calcifications. BOWEL AND MESENTERY: Colon: Mild sigmoid diverticulosis without diverticulitis. Normal appendix. Small Bowel: Normal. No obstruction. Peritoneum/mesentery: No free air or free fluid. No mesenteric lymphadenopathy. RETROPERITONEUM: Mild atheromatous disease of the abdominal aorta. No retroperitoneal lymphadenopat hy. MUSCULOSKELETAL: Superficial soft tissues: Bilateral fat containing inguinal hernias larger on the right side. Otherwi se, The superficial soft tissues are normal. Bones: Age appropriate degenerative changes of the spine. 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 IMPRESSION: 1. No definite mass is seen in both kidneys are normal. 2. Thickened wall of the urinary bladder which may indicate cystitis. Infiltrative process should be considered. Cystoscopy is advised. 3. No evidence of appendicitis, diverticulitis or intestinal obstruction. 4. Bilateral kidney cysts. 5. Bilateral fat containing inguinal hernias larger on the right side. Reviewed, dictated and finalized at location A. IMPRESSION: 1. No definite mass is seen in both kidneys are normal. 2. Thickened wall of the urinary bladder which may indicate cystitis. Infiltra tive process should be considered. Cystoscopy is advised. 3. No evidence of appendicitis, diverticulitis or intestinal obstruction. 4. Bilateral kidney cysts. 5. Bilateral fat containing inguinal hernias larger on the right side.
[2024-04-24 14:08] LABS: Estimated Glomerular Filt Rate > 60
== END 2024-04-24 13:41 | disposition home or self-care (01) ==
PROVIDERS: PCP Family Medicine Adolescent Medicine; Visit Provider Urology
DX: R31.0 Gross hematuria (principal); N28.1 Cyst of kidney, acquired; K40.20 Bilateral inguinal hernia, without obstruction or gangrene, not specified as recurrent
CPT/HCPCS: 74178; 81003; 87086; 99213; G0463; Q9967